=== PATIENT | female | born 1985 | race Caucasian/White ===

== ENCOUNTER 2019-10-27 07:33 | Outpatient (RCR) | payer BC, SELFPAY ==
[2019-09-29 09:49] VITALS: BP 117/68; PULSE 108
[2019-10-06 15:26] VITALS: BP 114/70; PULSE 94
--- NOTE | 2019-10-06 16:08 | PC.NURSE ---
BPP 10/22
[2019-10-13 08:58] VITALS: BP 128/74; PULSE 106
[2019-10-20 07:51] VITALS: BP 125/76; PULSE 97
--- NOTE | ~2019-10-27 | US_ITS ---
EXAMINATION: US OB BPP wo non-stress DATE: 10/27/2019 08:32 INDICATION: Advanced maternal age. Third trimester. TECHNIQUE: Real-time pelvic ultrasound was performed. COMPARISON: Ultrasound 10/20/2019 FINDINGS: There is a single living fetus in vertex presentation. The placenta is posterior. heart rate i s 135 beats per minute (bpm). The amniotic fluid index is 5.9 cm, which is low (5th percentile is 7.3 cm). Biophysical profile performed by the technologist: breathing (30 sec sustained breathing in 30 minutes): 2 out of 2 movement (3 gross body movements in 30 minutes): 2 out of 2 tone (one episode of doeyolp-eidokwhil-cutdmme limb movement): 2 out of 2 Amniotic fluid pocket (2 cm): 2 out of 2 Total score: 8 out of 8 IMPRESSION: 1. Single living fetus in vertex presentation. 2. Biophysical profile 8 out of 8. 3. Oligohydramnios. Reviewed, dictated and finalized at location B.
--- NOTE | ~2019-10-27 | US_ITS ---
EXAMINATION: US OB BPP wo non-stress EXAM DATE: 10/06/2019 16:02 INDICATION: Advanced maternal age. 3rd trimester. TECHNIQUE: Pelvic obstetrical transabdominal sonogram was performed by a technologist. There are mu ltiple grayscale and Doppler images available for interpretation. Comparison is made to prior examina tion from 09/29/2019. FINDINGS: There is a single fetus identified in vertex presentation with a heart rate of 129 beats pe r minute. The placenta is located in the posterior position. There is no sonographic evidence of ret roplacental hemorrhage identified. BIOPHYSICAL PROFILE (performed by the technologist) breathing (30 sec sustained breathing in 30 minutes): 2 out of 2 movement (3 gross body movements in 30 minutes): 2 out of 2 tone (one episode of yfjyerj-togbgrmxe-nifevrc limb movement): 2 out of 2 Amniotic fluid pocket (2 cm): 2 out of 2 Total score: 8 out of 8 IMPRESSION: 1. Single fetus with heart rate of 129 bpm. 2. Normal biophysical profile score of 8 out of 8. Reviewed, dictated and finalized at location A.
--- NOTE | ~2019-10-27 | US_ITS ---
EXAMINATION: US OB BPP wo non-stress DATE: 09/29/2019 09:39 CDT INDICATION: Advanced maternal age TECHNIQUE: Real-time transabdominal obstetric ultrasound. FINDINGS: No prior studies for comparison. There is a single living fetus in vertex presentation. The placenta is posterior without placenta pr evia. cardiac activity and movement is noted with a heart rate of 147 beats per minute. Biophysical profile: breathin of 2 movement: 2 of 2 tone: 2 of 2 Amniotic flud pocket: 2 of 2 Total score: 8 of 8 IMPRESSION: 1. Single living intrauterine in vertex presentation. 2: Total biophysical profile score of 8/8. Reviewed, dictated and finalized at location B.
--- NOTE | ~2019-10-27 | US_ITS ---
EXAMINATION: US OB BPP wo non-stress DATE: 10/20/2019 08:20 INDICATION: Advanced maternal age, third trimester TECHNIQUE: Real-time pelvic ultrasound was performed. The interpreting radiologist was not present fo r the study. COMPARISON: 10/13/2019 FINDINGS: There is a single living fetus in vertex presentation. The placenta is posterior. heart rate is 155 beats per minute (bpm). Biophysical profile performed by the technologist: breathing (30 sec sustained breathing in 30 minutes): 2 out of 2 movement (3 gross body movements in 30 minutes): 2 out of 2 tone (one episode of mhbpvjv-ysvupsdyq-mqjkwtc limb movement): 2 out of 2 Amniotic fluid pocket (2 cm): 2 out of 2 Total score: 8 out of 8 IMPRESSION: 1. Single living fetus in vertex presentation. 2. Biophysical profile 8 out of 8. Reviewed, dictated and finalized at location A.
--- NOTE | ~2019-10-27 | US_ITS ---
EXAMINATION: US OB follow up w BPP DATE: 10/13/2019 08:53 INDICATION: Advanced maternal age, growth assessment during third trimester TECHNIQUE: Real-time pelvic ultrasound was performed. The interpreting radiologist was not present fo r the study. COMPARISON: None. FINDINGS: There is a single living fetus in vertex presentation. The placenta is posterior. heart rate is 155 beats per minute (bpm). The amniotic fluid index is 11.5 cm which is normal Biophysical profile performed by the technologist: breathing (30 sec sustained breathing in 30 minutes): 2 out of 2 movement (3 gross body movements in 30 minutes): 2 out of 2 tone (one episode of lxqkyyb-ldtrefmux-kifiwol limb movement): 2 out of 2 Amniotic fluid pocket (2 cm): 2 out of 2 Total score: 8 out of 8 The following biometric data were obtained: Biparietal diameter (BPD): 9.6 cm; head circumference (HC): 36.3 cm; abdominal circumference (AC): 35 .0 cm; femur length (FL): 7.0 cm. These measurements are concordant. Estimated weight is 3615 g +/- 542 g, which correlates with the 95th percentile when 11/04/2019 is used as estimated date of delivery. As single measurements, these parameters are each equal to the following estimated gestational ages w ith ranges of +/- 2 standard deviations: BPD: 39 weeks 2 days +/- 3 weeks 1 days. HC: Out of range. AC: 39 weeks 0 days +/- 3 weeks 0 days. FL: 36 weeks 2 days +/- 3 weeks 0 days. estimated gestational age based solely on measurements from this exam is 38 weeks 1 days +/- 2 weeks 5 days. IMPRESSION: 1. Single living fetus in vertex presentation. 2. Biophysical profile 8 out of 8. 3. Normal amniotic fluid index. 4. Estimated weight is 3615 g +/- 542 g, which correlates with the 95th percentile when 11/04/19 20 is used as estimated date of delivery. Reviewed, dictated and finalized at location B. IMPRESSION: 1. Single living fetus in vertex presentation. 2. Biophysical profile 8 out of 8. 3. Normal amniotic fluid index. 4. Estimated weight is 3615 g +/- 542 g, which correlates with the 95th p ercentile when 11/04/2019 is used as estimated date of delivery.
[2019-10-27 07:52] VITALS: BP 125/81; PULSE 100
--- NOTE | 2019-10-27 08:38 | PC.NURSE ---
BPP 10/22
== END 2019-11-01 07:34 | disposition home or self-care (01) ==
LOC: ANHOBOP 07:33
PROVIDERS: PCP Family Medicine; Visit Provider Obstetrics & Gynecology
DX: O09.513 Supervision of elderly primigravida, third trimester (principal); Z3A.34 34 weeks gestation of pregnancy; Z3A.35 35 weeks gestation of pregnancy; Z3A.36 36 weeks gestation of pregnancy; Z3A.37 37 weeks gestation of pregnancy; Z3A.38 38 weeks gestation of pregnancy
CPT/HCPCS: 59025; 76816; 76819

== ENCOUNTER 2019-10-28 00:06 | Inpatient (IN) | payer BC, SELFPAY ==
[2019-10-28] VITALS (34 sets, daily range): BP systolic 116–149; BP diastolic 67–88; PULSE 80–100; TEMP 36.1–37.1; BMI 46.0
--- NOTE | 2019-10-28 00:56 | LDADM ---
This patient, Vanessa Garcia, was admitted to Labor/Delivery/Recovery 108 on 10/28/19 at 00:06. Plans for labor, pain management and were discussed with patient. Patient/family oriented to hospital policies and general routines including ID bracelet, bed and alarms, visiting hours, pain management, procedures, bathroom and other care routines, personal items, smoking policy, room service/diet and guest tray routines, infant security routines, and visiting hours. Patient/Family are encouraged to report perceived risks to care and to ask questions if they do not understand what they are told or what they should do. See OBIX for further documentation.
[2019-10-28 00:58] LABS: Basophils Percent Auto 0.3 % (0.2-1.2); Eosinophils Absolute Auto 0.1 K/mm3 (0-0.3); Eosinophils Percent Auto 0.8 % (0-4.4); Hematocrit 31.5 % (37.0-47.0); Hemoglobin 10.7 g/dL (12.0-15.0); Immature Granulocyte Absolute 0.13 K/mm3 (0.00-0.031); Immature Granulocyte Percent A 1.3 % (0-0.5); Lymphocytes Percent Auto 19.5 % (18.3-44.2); Mean Corpuscular Volume 88.2 fl (80-100); Mean Platelet Volume 11.3 fl (7.4-10.4); Monocytes Absolute Auto 0.8 K/mm3 (0.1-0.6); Monocytes Percent Auto 8.2 % (2.6-8.5); Neutrophils Absolute Auto 6.8 K/mm3 (1.3-6.7); Neutrophils Percent Auto 69.9 % (45.5-73.1); Platelet Count Result 196 k/mm3 (150-375); Red Blood Count 3.57 M/mm3 (4.2-5.4); Red Cell Distribution Width 13.2 % (11.5-14.5); White Blood Count 9.8 K/mm3 (4.5-10.0)
[2019-10-28] MEDS: DINOPROSTONE 10 MG VAG INSERT VAGINAL (01:08)
[2019-10-28] MEDS: AMPICILLIN 2 GM/NS 100 ML 2 GM/100 ML BAG IVPB (01:08)
[2019-10-28] MEDS: LACTATED RINGERS 1,000 ML 125 ML IV CONT ×2 (01:08→05:06)
[2019-10-28] MEDS: AMPICILLIN 1 GM/NS 50 ML 1 GM/50 ML BAG IVPB ×5 (05:07→21:58)
[2019-10-28 07:21] LABS: Rapid Plasma Reagin Non-Reactive (NonReactive)
--- NOTE | 2019-10-28 07:39 | PM.IMHP ---
H&P: HPI History of Present Illness Date/Time: 10/28/19 07:39 Chief complaint: IOL Narrative: Vanessa Garcia is a 34 yo @ 39.0wks who presented to L&D for induction of labor. She is feeling good movement. No contractions, bleeding, or leakage of fluid. Her is complicated by: - AMA, s/p normal genetic testing (cffDNA) and testing - GBS positive - Abnormal glucola, normal 3hr OGTT - Varicella non-immune - Mild anemia on iron supplementation - Obesity; BMI 37 Review of Systems Constitutional: Constitutional: Denies chills and Denies fatigue Eyes: Eyes: Denies blurry vision Cardiovascular: Cardiovascular: Denies chest pain and Denies palpitations Respiratory: Respiratory: Denies cough and Denies dyspnea Gastrointestinal: Gastrointestinal: Denies abdominal pain, Denies nausea and Denies vomiting Genitourinary: Genitourinary: Denies vaginal discharge Integumentary/Breasts: Skin/Breast: Denies rash Neurologic: Denies headache(s) Psychiatric: Psychiatric: Denies anxiety [facility], [facility] Family History Family History Father Hypertension Grandparent Hypertension Social History Social History Smoking status: Never smoker Second hand tobacco smoke exposure: No Substance use: never Spiritual care concerns: No Meds Home Medications and Allergies Home Medications Medication Instructions Recorded Confirmed Type PNV cmb#95-ferrous fumarate-FA 1 tablet PO DAILY 09/29/19 10/13/19 History [] Vitamin D3 5,000 unit PO DAILY 09/29/19 10/13/19 History cetirizine [Zyrtec] 10 mg PO DAILY PRN 09/29/19 10/13/19 History ferrous sulfate 325 mg PO DAILY 09/29/19 10/13/19 History Allergies Allergy/AdvReac Type Severity Reaction Status Date / Time azithromycin Allergy Intermediate RASH Verified 10/06/19 15:30 Sulfa (Sulfonamide Allergy Unknown Verified 10/06/19 15:30 Antibiotics) Vital Signs Vital Signs - 24 hr 10/28/19 00:31 10/28/19 00:45 10/28/19 01:00 Pulse Rate 99 84 84 Blood Pressure 134/77 125/83 116/72 08/13/20 01:15 10/28/19 01:30 10/28/19 01:45 Pulse Rate 85 87 85 Blood Pressure 121/81 119/76 126/72 10/28/19 02:00 10/28/19 02:15 10/28/19 02:30 Pulse Rate 84 80 84 Blood Pressure 121/80 122/79 119/70 10/28/19 02:45 10/28/19 03:00 10/28/19 07:03 Pulse Rate 87 86 93 Blood Pressure 119/67 124/69 124/76 10/28/19 07:15 Pulse Rate 93 Blood Pressure 118/72 Exam Const: General: comfortable and no acute distress Resp: Effort & Inspection: normal respiratory effort Cardio: Rate: regular rate GI: GI Palp: No Tenderness to palpation present (GI) : Other: FHT's: 125/mod nakia/ + accels/ no decels - cat 1 TOCO: irregular ctx's Membranes: intact Position: cephalic confirmed on BPP yesterday Cervix: closed/ thick/ high Skin: General skin exam: normal color Neuro: Speech: normal speech Extrem: General: edema (lower extremities) bilateral Psych: Affect: normal affect H&P: Results Labs Labs: Short CBC 10/28/19 Range/Units 00:49 WBC 9.8 (4.5-10.0) K/mm3 Hgb 10.7 L (12.0-15.0) g/dL Hct 31.5 L (37.0-47.0) % Plt Count 196 (150-375) k/mm3 Assessment and Plan Assessment and plan (1) : Qualifiers: Weeks of gestation: 39 weeks Qualified Code(s): Z3A.39 - 39 weeks gestation of Code(s): Z34.90 - Encounter for supervision of normal , unspecified, unspecified trimester Status: Acute (2) Advanced maternal age (AMA) in : Status: Acute Additional Plan - Admit to L&D for induction of labor - Cervidil x12 hrs unless ROM, tachysystole, or distress - Will plan for removal of cervidil followed by pitocin + AROM - GBS +; antibiotics ordered - FHT reassuring, continuous monitoring - Anesthesia consult PRN pain
--- NOTE | 2019-10-28 13:54 | PM.OBPNLAB ---
Pain Control Date/time seen: 10/28/19 13:54 Pain control: tolerating well Pelvic Exam Dilation (cm): 0 Effacement (%): 0 station: -4 Amniotic membrane status: Intact Contractions Monitor mode: External Contraction pattern: Irregular Contraction intensity: Mild Status status: Category l Assessment and Plan Assessment: induction ongoing Comments: - Cervidil did not ripen cervix, still closed/thick/high - Will continue IOL with Misoprostol 25mcg q4h for max of 5 doses (or tachysystole/ distress) - Continuous monitoring
[2019-10-28] MEDS: miSOPROStol 25 MCG TABLET VAGINAL (15:18)
[2019-10-28] MEDS: OXYTOCIN 30 UNITS/NS 500 ML 30 UNITS/500 ML BAG 6 UNITS IV CONT (19:03)
[2019-10-29] VITALS (236 sets, daily range): BP systolic 87–135; BP diastolic 36–121; PULSE 64–135; RESP 14–20; TEMP 36–36.9; O2SAT 83–100
[2019-10-29] MEDS: LACTATED RINGERS 1,000 ML 125 ML IV CONT ×3 (01:01→06:52)
[2019-10-29] MEDS: AMPICILLIN 1 GM/NS 50 ML 1 GM/50 ML BAG IVPB ×3 (02:23→11:02)
--- NOTE | 2019-10-29 03:01 | WPDANESEPPF ---
Anes - Initial Pre Proc Eval Procedure: labor epidural Date/Time: 10/29/19 03:01 Surgeon: Carmela Nichols MD Pre Op Diagnosis: labor pain Pre Op Diagnosis: IOL Patient Data Age: 34 Gender: F Height: 1.6 m Weight: 118 kg Last Vital Signs Temp 36.6 C 10/29/19 00:30 Pulse 95 10/29/19 03:00 BP 116/58 L 10/29/19 03:00 Pulse Ox 99 10/29/19 02:57 Allergies Allergy/AdvReac Type Severity Reaction Status Date / Time azithromycin Allergy Intermediate RASH Verified 10/06/19 15:30 Sulfa (Sulfonamide Allergy Unknown Verified 10/06/19 15:30 Antibiotics) Home Medications Medication Instructions Recorded Confirmed Type PNV cmb#95-ferrous fumarate-FA 1 tablet PO DAILY 09/29/19 10/28/19 History [] cetirizine [Zyrtec] 10 mg PO DAILY PRN 09/29/19 10/28/19 History cholecalciferol (vitamin D3) 125 mcg PO DAILY 09/29/19 10/28/19 History ferrous sulfate 325 mg PO DAILY 09/29/19 10/28/19 History Laboratory Tests 10/28/19 00:49 RPR Non-reactive (NonReactive) Patient hx anesthesia problems: none Family hx anesthesia problems: none PMFSH Past Medical History Medical History (Updated 10/28/19 @ 16:42 by Cam Pruett DO) Anemia Anxiety Depression Family History Family History Father Hypertension Grandparent Hypertension Social History Social History Smoking status: Never smoker Second hand tobacco smoke exposure: No Substance use: never Spiritual care concerns: No Anes - Eval Final PreProcedure Day of Procedure 10/29/19 03:01 Patient weight: morbidly obese Informed Consent: The patient's anesthetic plan and its attendant risks and benefits were discussed with the patient/family/POA. Questions were solicited and answers provided to the satisfaction of the patient/family/POA.
--- NOTE | 2019-10-29 06:43 | PM.OBPNLAB ---
Pain Control Date/time seen: 10/29/19 06:43 Pain control: epidural Pelvic Exam Dilation (cm): 4 Effacement (%): 60 station: -2 Amniotic membrane status: Ruptured (clear 0640, ) Contractions Monitor mode: External Contraction frequency: 2 Contraction pattern: Regular Status status: Category l Comments: 120's/ mod nakia/ + accels/ no decels - cat 1 Assessment and Plan Assessment: induction ongoing Plan: begin patient augmentation Comments: - Pitocin at 36mU prior to AROM - AROM performed this exam and lots of clear fluid noted - Cervix now more favorable; /-2 - Will stop pitocin and give break and restart after 30 min - IUPC to be placed if not able to adequately monitor contractions - FHT reassuring - GBS +; continue ppx
--- NOTE | 2019-10-29 14:07 | PM.OBPNLAB ---
Pain Control Date/time seen: 10/29/19 14:07 Pain control: epidural Pelvic Exam Dilation (cm): 4 Effacement (%): 50 station: -2 Amniotic membrane status: Ruptured (clear 0640, ) Contractions Monitor mode: Internal Contraction frequency: 3 Contraction pattern: Regular Status status: Category l Assessment and Plan Pitocin rate (mU/min): 38 Plan: Comments: - Pt has been induction of labor >36hrs and remains 4/50/-2 - Pt's cervix has not changed in ~8hr w/ adequate contractions - station still high and concern for LGA (EFW of 3900g @ 36wks, pt also failed glucola but had normal OGTT) - Discussed options of continuing IOL as she has not been ruptured on pitocin for 15-18hrs, but has been an IOL 36+hrs - Counseled on all risks/benefits of c/s and pt agrees and desires to proceed with pLTCS
--- NOTE | 2019-10-29 14:09 | PC.NURSE ---
IV use has been the #18 IV placed in the left wrist at 1310 on 10/28/2019.
--- NOTE | 2019-10-29 14:26 | WPDANESEFPP ---
Anes - Eval Final PreProcedure Day of Procedure 10/29/19 14:26 Patient weight: morbidly obese Heart: regular rate and rhythm Lungs: clear to auscultation Airway: Mallampati scale class II Neurological: alert and oriented ASA classification: III Emergent: no Anesthetic plan: proceed Anesthesia type and monitoring: regional epidural and standard monitoring Informed Consent: The patient's anesthetic plan and its attendant risks and benefits were discussed with the patient/family/POA. Questions were solicited and answers provided to the satisfaction of the patient/family/POA.
[2019-10-29] MEDS: ceFAZolin 2 GM/D5W 50 ML 2 GM/50 ML BAG IVPB (14:50)
--- NOTE | 2019-10-29 16:04 | P.PCNOB_ITS ---
OB - Delivery Note Procedure Procedure: Procedures Operation Date: 10/29/19 14:45 <No data on this case meets the specified criteria> Intrapartal events: Prolonged Labor > 20 hours and Prolonged Latent Phase Induction method: per misoprostol protocol and other (cervidil) Delivery augmentation: rupture of membranes and pitocin Delivery monitor: external FHT and internal uterine Route of delivery: Specimen: Yes Estimated blood loss (mL): 910 Anesthesia type: Epidural Disposition: PACU Narrative: She was counseled on all risks and benefits in detail. She was taken to the operating room where epidural was found to be adequate. She was then prepped and draped in the normal sterile fashion. She received 2g Ancef and a time out was performed. A Pfannenstiel incision was made in the skin and carried down to the underlying fascia. The fascia was nicked on either side of the midline and the fascial incision was extended laterally and superiorly. The fascia was then elevated and the underlying rectus muscles were dissected off the fascia, superiorly and inferiorly. The rectus muscles were then in the midline and the peritoneum was entered bluntly. Once adequate exposure was obtained, a bladder blade and rich retractor was placed within the abdomen. A bladder flap was created. A low transverse incision was made on the lower uterine segment and clear fluid was noted. The occicuput was brought to the hysterotomy and the head was easily delivered. The shoulder and body then followed without complications. The fetus had spontaneous cry and the mouth and nose were bulb suctioned. The cord was clamped and cut and the fetus was handed off to the awaiting pediatric nurse. A segment of the cord was collected for cord gases. The remaining cord blood was collected for typing. With pitocin infusing, the placenta delivered with gentle traction on the cord without complications. The uterus was exteriorized and then cleared out of all clots and debris using a clean, moist lap. The hysterotomy was then repaired in a running, interlocking fashion using 0 Vicryl. The left uterine artery was noted to be bleeding and an additional figure of eight was placed. A second layer imbricating suture was then made using 0 Vicryl. The uterus was placed back into the abdomen and additional bleeding was noted from the left broad ligament; a 2-0 Vicryl suture was placed in an interlocking fashion with 3 sutures and tied off. The hysterotomy and left apex were found to be hemostatic and good uterine tone was noted. The bilateral adnexa were normal. The pelvis w as cleared of all clots and fluid. The peritoneum, muscle, and fascia were examined and made hemostatic with bovie cautery. The fascia was then repaired using 0 Vicryl sutures in a running fashion. The subcutaneous tissue was then irrigated and made hemostatic with bovie cautery. The subcutaneous tissue was then reapproximated using 2-0 Vicryl. The skin was then closed using 3-0 Monocryl in a running subcuticular fashion. Sponge, lap, needle and instrument counts were correct at the end of the procedure x2. The patient tolerated the procedure well and was taken to recovery in a stable condition. [place] Baby Date of : 10/29/19 Time of : 15:12 Weeks of gestation at delivery: 39 Infant gender: Male Weight (pounds): 8 Weight (ounces): 6 presentation: vertex position: Left Occiput Anterior Placenta delivery description: Manual Removal cord vessel description: 3 Vessels, Nuchal Cord and Loose score one minute: 8 score five minutes: 9
[2019-10-29] MEDS: diphenhydrAMINE HCl INJ 50 MG/ML VIAL 25 MG IV PUSH (17:49)
[2019-10-29] MEDS: OXYTOCIN 30 UNITS/NS 500 ML 30 UNITS/500 ML BAG 125 UNITS IV CONT ×2 (17:49→18:14)
[2019-10-29] MEDS: DEXTROSE 5%/0.45% SOD CHL 1,000 ML 125 ML IV CONT (22:55)
[2019-10-30 04:30] VITALS: BP 117/84; PULSE 100; RESP 16; TEMP 36.9; O2SAT 95
[2019-10-30] MEDS: KETOROLAC 30 MG/ML VIAL (*BKC) IV PUSH (04:31)
[2019-10-30 05:35] LABS: Basophils Percent Auto 0.2 % (0.2-1.2); Eosinophils Percent Auto 0.3 % (0-4.4); Hematocrit 27.6 % (37.0-47.0); Hemoglobin 9.1 g/dL (12.0-15.0); Immature Granulocyte Absolute 0.07 K/mm3 (0.00-0.031); Immature Granulocyte Percent A 0.7 % (0-0.5); Lymphocytes Absolute Auto 1.04 K/mm3 (0.9-3.2); Lymphocytes Percent Auto 10.9 % (18.3-44.2); Mean Corpuscular Hemoglobin 29.4 pg (26-34); Mean Corpuscular Volume 89.3 fl (80-100); Mean Platelet Volume 11.6 fl (7.4-10.4); Monocytes Absolute Auto 0.7 K/mm3 (0.1-0.6); Monocytes Percent Auto 7.3 % (2.6-8.5); Neutrophils Absolute Auto 7.7 K/mm3 (1.3-6.7); Neutrophils Percent Auto 80.6 % (45.5-73.1); Platelet Count Result 160 k/mm3 (150-375); Red Blood Count 3.09 M/mm3 (4.2-5.4); Red Cell Distribution Width 13.3 % (11.5-14.5); White Blood Count 9.5 K/mm3 (4.5-10.0)
--- NOTE | 2019-10-30 08:29 | WPDANLDNPN2 ---
Anes-Prog Note L&D-Neuraxial Date/Time: 10/30/19 08:29 Neuraxial medications: intrathecal PF morphine Opiod-related complaints: none Patient feedback: Patient satisfied with post-operative pain management.
--- NOTE | 2019-10-30 08:29 | WPDANLDPN2 ---
Anes-Prog Note L&D Date/Time: 10/30/19 08:29 Comfortable throughout: section Neuraxial method: spinal Epidural/Spinal procedure site: clean & non-tender Neuro status: Neuro function grossly intact. Cardiovascular status: normal Respiratory status: normal Airway patency: baseline Mental status: baseline Post-Op hydration status: normal Vital Signs: Last Vital Signs Temp 36.9 C 10/30/19 04:30 Pulse 100 10/30/19 04:30 Resp 16 10/30/19 04:30 BP 117/84 10/30/19 04:30 Pulse Ox 95 10/30/19 04:30 I/O: Intake & Output 10/29/19 10/30/19 10/30/19 23:59 07:59 15:59 Intake Total 1000 Output Total 600 1000 Balance 400 -1000 Post-procedural complaints: none Patient feedback: Patient satisfied with anesthetic care.
[2019-10-30] MEDS: MULTIVIT/MIN/PREN/FOL AC/IRON TABLET 1 TAB PO (08:45)
[2019-10-30] MEDS: POLYSACCHARIDE IRON COMPLEX 150 MG CAPSULE PO ×2 (08:45→16:41)
[2019-10-30] MEDS: DOCUSATE SODIUM 100 MG CAPSULE PO ×2 (08:45→16:41)
[2019-10-30 09:00] VITALS: BP 106/73; PULSE 95; RESP 18; TEMP 36.4; O2SAT 95
[2019-10-30] MEDS: IBUPROFEN 600 MG TABLET PO ×2 (13:11→19:16)
[2019-10-30 13:15] VITALS: BP 121/70; PULSE 99; RESP 18; TEMP 36.9; O2SAT 96
[2019-10-30 19:00] VITALS: BP 115/76; PULSE 88; RESP 14; TEMP 36.6; O2SAT 97
[2019-10-31] MEDS: IBUPROFEN 600 MG TABLET PO ×2 (01:37→08:39)
[2019-10-31] MEDS: DOCUSATE SODIUM 100 MG CAPSULE PO (08:39)
[2019-10-31] MEDS: MULTIVIT/MIN/PREN/FOL AC/IRON TABLET 1 TAB PO (08:39)
[2019-10-31] MEDS: POLYSACCHARIDE IRON COMPLEX 150 MG CAPSULE PO (08:39)
[2019-10-31 08:40] VITALS: BP 134/82; PULSE 93; RESP 18; TEMP 36.9
--- NOTE | 2019-10-31 08:55 | PC.NURSE ---
Patient viewed the discharge video Mother & Baby Care, The First Two Weeks . Patient was given the opportunity and encouraged to ask questions. Patient verbalized understanding of information shared and has been given the mother/baby guide for home reference.
--- NOTE | 2019-10-31 09:46 | PM.OBDSVD ---
DS: Admitting Diagnosis Admitting Diagnosis Admitting Diagnosis: IOL OB - DS: Summary OB Procedures : None OB Procedures Intrapartum: OB Procedures: : None Peripartum Data Procedures: Procedures Operation Date: 10/29/19 14:45 Actual Procedures Side Surgeon p Section Bilateral Carmela Nichols MD Time Spent with Patient Time attestation: Total time spent providing and/or coordinating discharge services: Discharge Plan Discharge Discharging Clinician: Klaus Gonzalez Patient Disposition: Home, Self-Care Activity: as tolerated Diet: as tolerated Wound Care Instructions: incision open to air Patient Instructions: Antibiotic Form Stand Alone Forms: General Discharge Information Follow-up/Referrals: Carmela Nichols MD [Physician] - 3 Weeks Discharge Medications: New hydrocodone-acetaminophen 5-325 mg Tablet 1 tab PO Q3H PRN (Reason: Moderate Pain (4-6)) Qty: 20 RF: 0 ibuprofen 600 mg Tablet 600 mg PO Q6H PRN (Reason: Cramping) Qty: 30 RF: 0 Continued cetirizine [Zyrtec] 10 mg Tablet 10 mg PO DAILY PRN (Reason: Allergy Symptoms) RF: 0 ferrous sulfate 325 mg (65 mg iron) Tablet 325 mg PO DAILY RF: 0 cholecalciferol (vitamin D3) 125 mcg (5,000 unit) Capsule 125 mcg PO DAILY RF: 0 PNV cmb#95-ferrous fumarate-FA [] 28 mg iron- 800 mcg Tablet 1 tablet PO DAILY RF: 0 Date of admission: 10/28/19 00:06 Primary Care Provider: Ezequiel,Lo Burgess Admitting Provider: Carmela Nichols Attending physician on admission: Carmela Nichols
[2019-11-02 08:57] VITALS: BP 128/89; PULSE 85; RESP 20; TEMP 37.1; O2SAT 99
== END 2019-10-31 11:28 | disposition home or self-care (01) | DRG 787 ==
LOC: ANHOB2 10-31 10:04 → ANHLDR 11-01 12:55 → ANHOB2 11-01 12:55
PROVIDERS: Admitting Provider Obstetrics & Gynecology; PCP Family Medicine; Visit Provider Obstetrics & Gynecology
PROC: 10D00Z1 Extraction of Products of Conception, Low, Open Approach (ICD-10-PCS; CPT 59514; principal; 2019-10-29 14:45)
DX: O61.0 Failed medical induction of labor (principal); O63.9 Long labor, unspecified; O99.214 Obesity complicating childbirth; O99.824 Streptococcus B carrier state complicating childbirth; O69.81X0 Labor and delivery complicated by cord around neck, without compression, not applicable or unspecified; E66.01 Morbid (severe) obesity due to excess calories; Z3A.39 39 weeks gestation of pregnancy; Z37.0 Single live birth
CPT/HCPCS: 36415; 59025; 76819; 85025; 86592; 86850; 86900; 86901; A9270; J0131; J0290; J0690; J1200; J1885; J2274; J2405; J2590; J2795; J3010; J7120

== ENCOUNTER 2021-03-30 13:46 | Outpatient (CLI) | payer BC, SELFPAY ==
--- NOTE | ~2021-03-30 | MMUS_ITS ---
EXAMINATION: MM diagnostic carlos BI w lizeth, US breast RT limited HISTORY: Palpable right breast abnormality TECHNIQUE: Additional 3-D tomosynthesis images of the breasts were performed and synthetic 2-D images were generated. CAD analysis was submitted and interpreted. High resolution Limited right breast ult rasound was performed. COMPARISON: No prior studies for comparison. BREAST PARENCHYMAL COMPOSITION: Breast composed of scattered areas of fibroglandular density FINDINGS: MAMMOGRAPHIC FINDINGS: There are no suspicious masses, calcifications or architectural distortion in either breast to sugges t malignancy. ULTRASOUND: Limited left breast ultrasound: Normal heterogeneous echotexture without focal solid or cystic mass. IMPRESSION: 1. No evidence for malignancy in either breast. 2. Routine yearly screening mammogram and regular clinical breast examination are recommended. BI-RADS Category 1: Negative Reviewed, dictated and finalized at location A. OR [employer] DBA IMPRESSION: 1. No evidence for malignancy in either breast. 2. Routine yearly screening mammogram and regular clinical breast examination a re recommended. BI-RADS Category 1: Negative
== END 2021-03-30 13:47 | disposition home or self-care (01) ==
LOC: ANHIMG 13:47
PROVIDERS: PCP Family Medicine; Visit Provider Obstetrics & Gynecology
DX: N63.10 Unspecified lump in the right breast, unspecified quadrant (principal)
CPT/HCPCS: 76642; 77062; 77066; G0279

== ENCOUNTER 2021-07-02 15:00 | Outpatient (CLI) | payer BC, SELFPAY ==
[2021-07-02 15:44] LABS: Beta HCG Quantitative < 2.39 mIU/ML
== END 2021-07-02 15:01 | disposition home or self-care (01) ==
PROVIDERS: PCP Family Medicine; Visit Provider Obstetrics & Gynecology
DX: N92.6 Irregular menstruation, unspecified (principal)
CPT/HCPCS: 36415; 84702

== ENCOUNTER 2023-05-14 12:55 | Outpatient (CLI) | payer BC, SELFPAY ==
--- NOTE | ~2023-05-14 | MM_ITS ---
EXAMINATION: MM screening carlos BI w lizeth HISTORY: Screening TECHNIQUE: Craniocaudal and mediolateral oblique 3-D tomosynthesis images were obtained and synthetic 2-D images were generated. CAD analysis was submitted and interpreted. COMPARISON: 03/30/2021 BREAST PARENCHYMAL COMPOSITION: Not dense: There are scattered areas of fibroglandular density. FINDINGS: There is no evidence of suspicious mass, calcification, or architectural distortion to sugg est malignancy in either breast. There has been no suspicious interval change. IMPRESSION: 1. No mammographic evidence of malignancy. 2. Recommend routine screening mammography in one year. BI-RADS Category 1: Negative Reviewed, dictated and finalized at location A. ENTER SUPERVISOR
== END 2023-05-14 12:56 | disposition home or self-care (01) ==
LOC: ANHIMG 12:57
PROVIDERS: PCP Family Medicine; Visit Provider Obstetrics & Gynecology
DX: Z12.31 Encounter for screening mammogram for malignant neoplasm of breast (principal)
CPT/HCPCS: 77063; 77067

== ENCOUNTER 2023-11-10 12:03 | Outpatient (CLI) | payer BC, SELFPAY ==
[2023-11-15 03:58] LABS: Immunoglobulin A 180 mg/dL (47-310); TTG IGA AB <1.0 U/mL
== END 2023-11-10 12:04 | disposition home or self-care (01) ==
PROVIDERS: PCP Family Medicine; Visit Provider Nurse Practitioner
DX: K52.9 Noninfective gastroenteritis and colitis, unspecified (principal); R10.9 Unspecified abdominal pain
CPT/HCPCS: 36415; 82784; 86364

== ENCOUNTER 2023-12-16 01:38 | Day surgery (SDC) | payer BC, SELFPAY ==
[2023-11-20 11:45] VITALS: BMI 39.4
[2023-12-16 11:33] VITALS: BP 139/101; PULSE 71; RESP 18; TEMP 36.6; O2SAT 100
[2023-12-16 11:50] LABS: BEDSIDEPREGUCG Negative (Negative)
[2023-12-16] MEDS: LACTATED RINGERS 1,000 ML 150 ML IV CONT (11:50)
--- NOTE | 2023-12-16 12:56 | WPDANESEPPF ---
Anes - Initial Pre Proc Eval Procedure: Operation Date: 12/16/23 13:00 Proposed Procedures p Colonoscopy - Nikko Bradshaw MD Date/Time: 12/16/23 12:56 Surgeon: Nikko Bradshaw MD Pre Op Diagnosis: gastroenteritis/colitis, abd. pain Patient Data Age: 38 Gender: F Height: 1.6 m Weight: 99.1 kg Last Vital Signs Temp 97.9 F 12/16/23 11:33 Pulse 71 12/16/23 11:33 Resp 18 12/16/23 11:33 BP 139/101 H 12/16/23 11:33 Pulse Ox 100 12/16/23 11:33 O2 Del Method Room Air 12/16/23 11:33 Allergies Allergy/AdvReac Type Severity Reaction Status Date / Time azithromycin Allergy Intermediate RASH Verified 12/16/23 11:32 Sulfa (Sulfonamide Allergy Unknown Verified 12/16/23 11:32 Antibiotics) Home Medications Medication Instructions Recorded Confirmed Type levonorgestrel 21 mcg/24 hr (up to 1 device intrauterine ONCE 03/19/22 12/16/23 History 8 years) 52 mg intrauterine device (Mirena) lactobacillus combination no.9 4 1 cell PO DAILY 10/22/23 12/16/23 History billion cell capsule (Adult 50 Plus Probiotic) montelukast 10 mg tablet 10 mg PO DAILY 10/22/23 12/16/23 History (Singulair) multivitamin (Daily Multi-Vitamin 1 tablet PO DAILY 10/22/23 12/16/23 History tablet) Laboratory Tests 12/16/23 11:41 POC Urine HCG, Qual Negative (Negative) Patient hx anesthesia problems: none Family hx anesthesia problems: none Results Review: All pre-operative results and documents have been reviewed as part of the pre-operative evaluation. [facility] Past Medical History Medical History Anemia Anxiety Depression Encounter for insertion of mirena IUD Screening mammogram, encounter for Surgical History Surgical History Delivery by section Family History Family History Father Hypertension Diabetes mellitus Grandparent Hypertension Social History Social History Smoking status: Never smoker Second hand tobacco smoke exposure: No Alcohol intake: current Drinks per week: 4 Alcohol use details: occasionally Substance use: current Substance use type: marijuana Other substance usage details: gummies Do You Feel Safe in your Home?: Yes Lack of Transportation: No Lack of Food: Never True Current Housing: I Have Housing Concerned About Future Housing: No Difficulty Paying Gas/Electric Bills: No Difficulty Paying for Meds: No Currently Unemployed: No Education: Bachelor's Degree Difficulty w/ Childcare or Family Care: No Living arrangements: with family 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 Gender identity (if verbalized by the patient): Female Sexual Orientation (if Verbalized by the Patient): Straight or Heterosexual Spiritual care concerns: No Anes - Eval Final PreProcedure Day of Procedure 12/16/23 12:56 Patient weight: obese Heart: regular rate and rhythm Lungs: clear to auscultation Airway: Mallampati scale class II Neurological: alert and oriented Last oral intake: >/= 8 hours ASA classification: II Emergent: no Anesthetic plan: proceed Anesthesia type and monitoring: general GIVS and standard monitoring Results Review: All pre-operative results and documents have been reviewed as part of the pre-operative evaluation. Obesity, BMI 38. Pt walks 15K steps/day, no cp or sob. Informed Consent: The patient's anesthetic plan and its attendant risks and benefits were discussed with the patient/family/POA. Questions were solicited and answers provided to the satisfaction of the patient/family/POA.
--- NOTE | 2023-12-16 13:22 | PM.HPGS ---
History of Present Illness History of Present Illness Consent: Risks, benefits, and alternatives have been discussed and questions answered. Patient agrees to proceed with procedure. Chief complaint: gastroenteritis/colitis, abd. pain Narrative: Vanessa Garcia is a 38 year old female here for first colonoscopy, several months of diarrhea, serology for celiac negative Review of Systems Review of Systems: All systems reviewed & are unremarkable except as noted in HPI and below PMFSH Past Medical History Medical History Anemia Anxiety Depression Encounter for insertion of mirena IUD Screening mammogram, encounter for Surgical History Surgical History Delivery by section Family History Family History Father Hypertension Diabetes mellitus Grandparent Hypertension Social History Social History Smoking status: Never smoker Second hand tobacco smoke exposure: No Alcohol intake: current Drinks per week: 4 Alcohol use details: occasionally Substance use: current Substance use type: marijuana Other substance usage details: gummies Do You Feel Safe in your Home?: Yes Lack of Transportation: No Lack of Food: Never True Current Housing: I Have Housing Concerned About Future Housing: No Difficulty Paying Gas/Electric Bills: No Difficulty Paying for Meds: No Currently Unemployed: No Education: Bachelor's Degree Difficulty w/ Childcare or Family Care: No Living arrangements: with family 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 Gender identity (if verbalized by the patient): Female Sexual Orientation (if Verbalized by the Patient): Straight or Heterosexual Spiritual care concerns: No Meds Home Medications and Allergies Home Medications Medication Instructions Recorded Confirmed Type levonorgestrel 21 mcg/24 hr (up to 1 device intrauterine ONCE 03/19/22 12/16/23 History 8 years) 52 mg intrauterine device (Mirena) lactobacillus combination no.9 4 1 cell PO DAILY 10/22/23 12/16/23 History billion cell capsule (Adult 50 Plus Probiotic) montelukast 10 mg tablet 10 mg PO DAILY 10/22/23 12/16/23 History (Singulair) multivitamin (Daily Multi-Vitamin 1 tablet PO DAILY 10/22/23 12/16/23 History tablet) Allergies Allergy/AdvReac Type Severity Reaction Status Date / Time azithromycin Allergy Intermediate RASH Verified 12/16/23 11:32 Sulfa (Sulfonamide Allergy Unknown Verified 12/16/23 11:32 Antibiotics) Vital Signs Vital Signs - 24 hr 12/16/23 11:33 Temperature 97.9 F Pulse Rate 71 Respiratory Rate 18 Blood Pressure 139/101 H Pulse Oximetry 100 Oxygen Delivery Room Air Exam Const: General: comfortable and no acute distress HENMT: Face/Nose/Sinus: Normal nares present Eyes: General: appearance normal, both eyes and all related structures Neck: Neck: no JVD Resp: Auscultation: clear to auscultation bilaterally Cardio: Rate: regular rate Rhythm: regular rhythm GI: Inspection: non-distended GI Palp: Yes Soft to palpation Skin: General skin exam: normal color Neuro: General: gait normal Speech: normal speech Extrem: General: normal to inspection Psych: Mental Status: mental status grossly normal Assessment and Plan Assessment and plan (1) Chronic diarrhea: Code(s): K52.9 - Noninfective gastroenteritis and colitis, unspecified Status: Acute Assessment and Plan: colonoscopy with random bx
[2023-12-16 13:37] VITALS: BP 125/88; PULSE 71; RESP 22; O2SAT 100
[2023-12-16 13:47] VITALS: BP 126/91; PULSE 65; RESP 20; O2SAT 100
[2023-12-16 13:57] VITALS: BP 130/85; PULSE 62; RESP 18; O2SAT 100
== END 2023-12-16 14:04 | disposition home or self-care (01) ==
PROVIDERS: Anesthesiology; PCP Nurse Practitioner Family; Referring Provider Nurse Practitioner; Visit Provider Internal Medicine Gastroenterology
PROC: 0DJD8ZZ Inspection of Lower Intestinal Tract, Via Natural or Artificial Opening Endoscopic (ICD-10-PCS; CPT 45378; principal; 2023-12-16 13:00)
DX: K64.8 Other hemorrhoids (principal); D64.9 Anemia, unspecified; F41.9 Anxiety disorder, unspecified; F32.A Depression, unspecified; F12.90 Cannabis use, unspecified, uncomplicated; E66.9 Obesity, unspecified; Z68.38 Body mass index [BMI] 38.0-38.9, adult; Z98.890 Other specified postprocedural states; Z97.5 Presence of (intrauterine) contraceptive device
CPT/HCPCS: 45380; 88305; J2003; J2704; J7120

== ENCOUNTER 2024-02-03 18:19 | Emergency (ER) | payer BC, SELFPAY ==
--- NOTE | ~2024-02-03 | CT_ITS ---
EXAMINATION: CT abdomen pelvis w con DATE: 02/03/2024 22:05 INDICATION: Right lower quadrant abdominal pain. TECHNIQUE: Computed tomography (CT) of the abdomen and pelvis was performed with 100 mL Omnipaque 350 intravenous contrast. Automated exposure control and iterative reconstruction technique were employe d. The dose-length product was 1516.59 mGy-cm. COMPARISON: CT abdomen and pelvis 02/01/2015 FINDINGS: The visualized portions of lung bases demonstrate mild atelectasis. No pleural effusion. Th e heart size is normal. No pericardial effusion. The liver, gallbladder, spleen, pancreas, and adrena l glands are normal. There are cysts in the kidneys measuring up to 2.7 cm on the left. There is an i ntrauterine device in expected position. There are no dilated loops of bowel. The appendix is normal. There are no pathologically enlarged lymph nodes. There is no free intraperitoneal fluid. There are chronic bilateral L5 pars defects. There is mild lumbar spondylosis. IMPRESSION: 1. No etiology for the patient's symptoms. Reviewed, dictated and finalized at location [facility]. [facility]
[2024-02-03 18:34] VITALS: BP 147/92; PULSE 81; RESP 16; TEMP 36.8; O2SAT 98
[2024-02-03 19:36] LABS: Basophils Percent Auto 0.5 % (0.2-1.2); Eosinophils Absolute Auto 0.2 K/mm3 (0-0.3); Eosinophils Percent Auto 1.8 % (0-4.4); Hematocrit 43.7 % (37.0-47.0); Immature Granulocyte Absolute 0.03 K/mm3 (0.00-0.031); Immature Granulocyte Percent A 0.4 % (0-0.5); Lymphocytes Absolute Auto 2.03 K/mm3 (0.9-3.2); Lymphocytes Percent Auto 23.9 % (18.3-44.2); Mean Corpuscular HGB Conc 34.3 g/dl (32-36); Mean Corpuscular Hemoglobin 30.6 pg (26-34); Mean Corpuscular Volume 89.2 fl (80-100); Mean Platelet Volume 10.8 fl (7.4-10.4); Monocytes Absolute Auto 0.6 K/mm3 (0.1-0.6); Monocytes Percent Auto 6.7 % (2.6-8.5); Neutrophils Absolute Auto 5.7 K/mm3 (1.3-6.7); Neutrophils Percent Auto 66.7 % (45.5-73.1); Platelet Count Result 282 k/mm3 (150-375); Red Cell Distribution Width 11.9 % (11.5-14.5); White Blood Count 8.5 K/mm3 (4.5-10.0)
[2024-02-03 19:46] LABS: Alanine Aminotransferase 24 U/L (6-35); Albumin Level 4.5 g/dL (3.5-5.1); Alkaline Phosphatase 75 U/L (38-126); Anion Gap 7 mmol/L (4-12); Aspartate Amino Transferase 36 U/L (14-36); Bilirubin,Total 0.3 mg/dL (0.2-1.3); Blood Urea Nitrogen 10 mg/dL (7-17); Calcium 8.9 mg/dL (8.4-10.2); Carbon Dioxide 26 mmol/L (22-30); Chloride 103 mmol/L (98-107); Estimated CRCL calculation 103 ml/min; Estimated Glomerular Filt Rate > 60; Glucose 96 mg/dL (65-110); Lipase 135 U/L (23-300); Magnesium 2.1 mg/dL (1.6-2.3); Potassium 3.7 mmol/L (3.4-5.0); Sodium 136 mmol/L (137-145)
[2024-02-03 20:03] LABS: BEDSIDEPREGUCG Negative (Negative)
[2024-02-03 20:08] LABS: Add Urine Microscopic? NO; Appearance Urine Clear (Clear); Bilirubin Urine Negative (Negative); Blood Urine Negative (Negative); Color Urine Yellow (Yellow); Glucose Urine UA Negative (Negative); Ketones Urine Negative (Negative); Leukocyte Esterase Ur Negative LEU/UL (Negative); Nitrate Urine Negative (Negative); Protein Urine Negative (Negative); Specific Grav Ur 1.005 (1.001-1.035); Urobilinogen Urine 0.2 mg/dL (<2.0); pH Urine 5.5 (5.0-9.0)
[2024-02-03 21:08] LABS: SPREG INTERNAL CONTROL Positive; Serum Qual hCG Negative
--- NOTE | 2024-02-03 21:10 | ED.ABDPAIN ---
HPI - Abdominal Pain General Chief Complaint: Abdominal Pain Stated Complaint: abdominal cramping Time Seen by Provider: 02/03/24 20:45 History of Present Illness HPI narrative: Patient is a 39-year-old female who presents the ER with diarrhea. Ongoing over last week. Yellow and containing chunks. Maybe the consistency a passion fruit. No fevers or chills or sweats. Recently had a colonoscopy. Has history of chronic diarrhea as well but this seems different. No history of diverticulitis. She has tried Imodium without improvement. Patient does take Zepbound but has not increased the dose since the beginning of the month. Concerned she may have a urinary tract infection despite having no dysuria. Related Data Home Medications Medication Instructions Recorded Confirmed levonorgestrel 21 mcg/24 hr (up to 1 device intrauterine ONCE 03/19/22 12/16/23 8 years) 52 mg intrauterine device (Mirena) lactobacillus combination no.9 4 1 cell PO DAILY 10/22/23 12/16/23 billion cell capsule (Adult 50 Plus Probiotic) montelukast 10 mg tablet 10 mg PO DAILY 10/22/23 12/16/23 (Singulair) multivitamin (Daily Multi-Vitamin 1 tablet PO DAILY 10/22/23 12/16/23 tablet) Allergies Allergy/AdvReac Type Severity Reaction Status Date / Time azithromycin Allergy Intermediate RASH Verified 02/03/24 18:19 Sulfa (Sulfonamide Allergy Unknown Verified 02/03/24 18:19 Antibiotics) Review of Systems Review of Systems: All systems reviewed & are unremarkable except as noted in HPI and below Constitutional: Constitutional: Reports no additional constitutional complaints ENT: Reports system reviewed and no additional complaints, except as documented Cardiovascular: Cardiovascular: Reports no additional cardiovascular complaints Respiratory: Respiratory: Reports no additional respiratory complaints Gastrointestinal: Gastrointestinal: Reports abdominal pain, Reports diarrhea, Denies nausea and Denies vomiting Genitourinary: Genitourinary: Reports no additional female genitourinary complaints PMFSH Past Medical History Medical History Anemia Anxiety Depression Encounter for insertion of mirena IUD Screening mammogram, encounter for Surgical History Surgical History Delivery by section Family History Family History Father Hypertension Diabetes mellitus Grandparent Hypertension Social History Social History Smoking status: Never smoker Second hand tobacco smoke exposure: No Alcohol intake: current Drinks per week: 4 Alcohol use details: occasionally Substance use: current Substance use type: marijuana Other substance usage details: gummies Do You Feel Safe in your Home?: Yes Lack of Transportation: No Lack of Food: Never True Current Housing: I Have Housing Concerned About Future Housing: No Difficulty Paying Gas/Electric Bills: No Difficulty Paying for Meds: No Currently Unemployed: No Education: Bachelor's Degree Difficulty w/ Childcare or Family Care: No Living arrangements: with family 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 HEAD: Normocephalic, atraumatic. ENT: Mucous membranes moist. CHEST: Clear to auscultation. No respiratory distress. HEART: Regular rate and rhythm. Normal peripheral pulses. ABDOMEN: Soft, tender palpation right lower quadrant with mild guarding, nondistended. EXTREMITIES: Normal range of motion. No edema. SKIN: Warm, dry, no rash. NEURO: Alert and oriented x3. PSYCH: Normal mood and affect. Course Course Emergency Course: patient resting comfortably. Informed of results. Labs are normal. CT scan without acute process. Appropriate for discharge home. Vital Signs Vital signs: Vital Signs Temperature 98.2 F 02/03/24 18:34 Pulse Rate 81 02/03/24 18:34 Respiratory Rate 16 02/03/24 18:34 Blood Pressure 147/92 H 02/03/24 18:34 Pulse Oximetry 98 02/03/24 18:34 Oxygen Delivery Room Air 02/03/24 18:34 Temperature 98.2 F 02/03/24 18:34 Pulse Rate 81 02/03/24 18:34 Respiratory Rate 16 02/03/24 18:34 Blood Pressure 147/92 H 02/03/24 18:34 Pulse Oximetry 98 02/03/24 18:34 Oxygen Delivery Room Air 02/03/24 18:34 MDM - Abdominal Pain Lab Data 02/03/24 19:26 02/03/24 19:26 Labs: Lab Results 02/03/24 02/03/24 02/03/24 Range/Units 19:26 19:59 20:01 WBC 8.5 (4.5-10.0) K/mm3 RBC 4.90 (4.2-5.4) M/mm3 Hgb 15.0 D (12.0-15.0) g/dL Hct 43.7 (37.0-47.0) % MCV 89.2 (80-100) fl MCH 30.6 (26-34) pg MCHC 34.3 (32-36) g/dl RDW 11.9 (11.5-14.5) % Plt Count 282 D (150-375) k/mm3 MPV 10.8 H (7.4-10.4) fl Immature Gran % (Auto) 0.4 (0-0.5) % Neut % (Auto) 66.7 (45.5-73.1) % Lymph % (Auto) 23.9 (18.3-44.2) % [place] % (Auto) 6.7 (2.6-8.5) % Eos % (Auto) 1.8 (0-4.4) % Baso % (Auto) 0.5 (0.2-1.2) % Lymph # (Auto) 2.03 (0.9-3.2) K/mm3 [place] # (Auto) 0.6 (0.1-0.6) K/mm3 Eos # (Auto) 0.2 (0-0.3) K/mm3 Baso # (Auto) 0.0 (0.0-0.1) K/mm3 Abs Immat Gran (auto) 0.03 (0.00-0.031) K/mm3 Absolute Neuts (auto) 5.7 (1.3-6.7) K/mm3 Absolute Nucleated RBC 0.000 (0.0-0.012) K/mm3 Nucleated RBC % 0.0 (0.0-0.2) % Sodium 136 L (137-145) mmol/L Potassium 3.7 (3.4-5.0) mmol/L Chloride 103 (98-107) mmol/L Carbon Dioxide 26 (22-30) mmol/L Anion Gap 7 (4-12) mmol/L BUN 10 (7-17) mg/dL Creatinine 0.70 (0.7-1.0) mg/dL Estim Creat Clear Calc 103 ml/min Estimated GFR > 60 (59 - ) Glucose 96 (65-110) mg/dL Calcium 8.9 (8.4-10.2) mg/dL Magnesium 2.1 (1.6-2.3) mg/dL Total Bilirubin 0.3 (0.2-1.3) mg/dL AST 36 (14-36) U/L ALT 24 (6-35) U/L Alkaline Phosphatase 75 (38-126) U/L Total Protein 8.0 (6.3-8.2) g/dL Albumin 4.5 (3.5-5.1) g/dL Lipase 135 (23-300) U/L Serum HCG, Qual Negative Urine Color Yellow (Yellow) Urine Appearance Clear (Clear) Urine pH 5.5 (5.0-9.0) Ur Specific [place] 1.005 (1.001-1.035) Urine Protein Negative (Negative) mg/dL Urine Glucose (UA) Negative (Negative) mg/dL Urine Ketones Negative (Negative) mg/dL Ur Blood (Man) Negative (Negative) Urine Nitrate Negative (Negative) Urine Bilirubin Negative (Negative) Urine Urobilinogen 0.2 (<2.0) mg/dL Leukocyte Esterase Rfl Negative (Negative) MIKE/UL POC Urine HCG, Qual Negative (Negative) Imaging Data Radiologist's impression: ITS Impressions Abdomen/Pelvis CT 02/03/24 22:09 IMPRESSION: 1. No etiology for the patient's symptoms. Discharge Plan Discharge Clinical Impression: Gastroenteritis Patient Disposition: Home, Self-Care Condition: Stable Instructions: Gastroenteritis (ED) Additional Instructions: Please drink plenty of fluids at home. Return to the emergency department if you develop high fevers, have persistent severe abdominal pain, or have bloody stools or vomit, as these could be signs of a more serious medical emergency. Return to the emergency department if you are unable to keep down liquids because of severe nausea/vomiting. Prescriptions: New dicyclomine 20 mg tablet 20 mg PO QID Qty: 20 0RF No Action Mirena 20 mcg/24 hours (8 yrs) 52 mg intrauterine device 1 device intrauterine ONCE Rx Instructions: as a single dose montelukast [Singulair] 10 mg tablet 10 mg PO DAILY multivitamin [Daily Multi-Vitamin] Tablet 1 tablet PO DAILY Adult 50 Plus Probiotic 4 billion cell capsule 1 cell PO DAILY Follow-up/Referrals: Vanessa,Sade Castillo, MEDICAL RECEPTION SPECIALIST [Primary Care Provider] -
== END 2024-02-03 23:00 | disposition home or self-care (01) ==
PROVIDERS: Emergency Medicine; Emergency Provider Emergency Medicine; PCP Nurse Practitioner Family
DX: K52.9 Noninfective gastroenteritis and colitis, unspecified (principal); D64.9 Anemia, unspecified; Z97.5 Presence of (intrauterine) contraceptive device
CPT/HCPCS: 36415; 74177; 80053; 81003; 81025; 83690; 83735; 84703; 85025; 99284; Q9967

== ENCOUNTER 2024-02-25 13:34 | Outpatient (CLI) | payer BC, SELFPAY ==
[2024-02-25 17:47] LABS: Toxigenic C. Diff POSITIVE (NEGATIVE)
[2024-03-03 15:03] LABS: Pancreatic Elastase, Stool 24 mcg/g (>200)
[2024-03-04 23:24] LABS: Calprotectin, Stool 15 mcg/g
== END 2024-02-25 13:35 | disposition home or self-care (01) ==
PROVIDERS: PCP Nurse Practitioner Family; Visit Provider Nurse Practitioner
DX: R19.7 Diarrhea, unspecified (principal); Z86.19 Personal history of other infectious and parasitic diseases
CPT/HCPCS: 82653; 83993; 87045; 87269; 87427; 87449; 87493

== ENCOUNTER 2024-05-17 15:31 | Outpatient (CLI) | payer BC, SELFPAY | END 2024-05-17 15:32 | disposition home or self-care (01) | LOC: ANHIMG 15:33 | PROVIDERS: PCP Nurse Practitioner Family; Visit Provider Obstetrics & Gynecology | DX: Z12.31 Encounter for screening mammogram for malignant neoplasm of breast (principal) | CPT/HCPCS: 77063; 77067 ==